=== PATIENT | male | born 1955 | race Caucasian/White ===

== ENCOUNTER 2018-07-24 13:26 | Day surgery (SDC) | END 2018-07-24 16:38 | disposition home or self-care (01) ==

== ENCOUNTER 2018-08-20 11:00 | Day surgery (SDC) | END 2018-08-20 16:45 | disposition home or self-care (01) ==

== ENCOUNTER 2018-09-18 09:14 | Day surgery (SDC) | END 2018-09-18 14:00 | disposition home or self-care (01) ==

== ENCOUNTER 2018-10-09 10:35 | Day surgery (SDC) | END 2018-10-09 16:28 | disposition home or self-care (01) ==

== ENCOUNTER 2018-10-31 09:43 | Day surgery (SDC) | payer OTHER ==
[~2018-10-31] VITALS: Ht 162.6 cm; Wt 66.1 kg
[~2018-10-31 09:43] MED LIST: AMLO5TAB4 PO; ASPI81TA52 PO; ATOR40TA68 PO; GABA-526 PO; GLIM2TAB PO; GLIP10TA14 PO; HYDR25TA6 PO; LEVO200T45 PO; VALS80TA2 PO; [UNRECOGNIZED DRUG - REMARK]
[2018-10-31 10:25] VITALS: Ht 162.6 cm; Wt 66.1 kg
[2018-10-31 10:57] VITALS: BP 118/69; PULSE 74; RESP 20
--- NOTE | 2018-10-31 11:03 | PREAC ---
Date/Time of Note Date/Time of Note DATE: 10/31/18 TIME: 11:01 Anesthesia Eval and Record Evaluation Time Pre-Procedure Interview DATE: 10/31/18 TIME: 11:01 Age 62 Sex male NPO: 8 hrs Preoperative diagnosis esopahageal obstruction Planned procedure egd Past Medical History Past Medical History: Includes Cardio: HTN, Dyslipidemia Endo: Diabetes Surgery & Anesthesia Issues No known issue Meds Anticoagulation: No Beta Mir within 24 hr: No Reason Beta Mir not given: Pt. not on B-Mir Reported Medications Atorvastatin* (Atorvastatin*) 40 Mg Tablet, 40 MG PO QHS, #30 TAB 09/18/18 Glipizide* (Glipizide*) 10 Mg Tablet, 10 MG PO AC BREAKFAST, TAB 08/20/18 Aspirin (Low Dose Aspirin) 81 Mg Tablet.dr, 81 MG PO DAILY, #30 TAB 08/20/18 Amlodipine Besylate* (Norvasc*) 5 Mg Tablet, 5 MG PO DAILY, TAB 08/20/18 Gabapentin* (Gabapentin*) 600 Mg Tablet, 600 MG PO BID, #60 TAB 08/20/18 Glimepiride* (Glimepiride*) 2 Mg Tablet, 2 MG PO WITH BREAKFAST, TAB 08/20/18 Hydrochlorothiazide* (Hydrochlorothiazide*) 25 Mg Tab, 25 MG PO DAILY, #30 TAB 08/20/18 Valsartan* (Diovan*) 80 Mg Tablet, 80 MG PO DAILY, TAB 08/20/18 Discontinued Reported Medications [Pt Reports No Meds] No Conflict Check 10/09/18 Levothyroxine Sodium* (Levoxyl*) 200 Mcg Tablet, 200 MCG PO BEFORE BREAKFAST, #30 TAB 08/20/18 Meds reviewed: Yes Allergies Coded Allergies: No Known Allergy (Unverified , 09/18/18) Allergies Reviewed: Yes Labs/Studies Labs Reviewed: Reviewed by anesthesiologist test: N/A Pre-procedure Exam Airway: Adequate mouth opening, Adequate thyromental dist Mallampati: Mallampati I Teeth: Normal Lung: Normal Heart: Normal ASA Physical Status ASA physical status: 2 Emergency: None Planned Anesthetic General/MAC: MAC Planned Pain Management Parenteral pain med Pre-operative Attestations Prior to commencing anesthesia and surgery, the patient was re-evaluated, there was verification of: *The patient's identity *The results of appropriate recent lab work and preoperative vital signs *The above evaluation not changing prior to induction *Anesthetic plan, risk benefits, alternative and complications discussed with patient/family; questions answered; patient/family understands, accepts and wishes to proceed. BURTON RODARTE Oct 31, 2018 11:02
[2018-10-31] MEDS ORDERED: PROPOFOL 20 ML ONE (11:06)
[2018-10-31] MEDS ORDERED: LIDOCAINE 2% (SDV) 5 ML INJ ONE (11:07)
[2018-10-31] MEDS ORDERED: ONDANSETRON 4 MG INJ IV PRN (11:30)
[2018-10-31] MEDS ORDERED: hydrALAzine 20 MG INJ IV PRN (11:30)
[2018-10-31] MEDS ORDERED: LABETALOL HCL 20MG INJ IV PRN (11:30)
[2018-10-31] MEDS ORDERED: EPHEDrine SULFATE 50 MG/5 ML SYG IV PRN (11:30)
[2018-10-31] MEDS ORDERED: FENTAnyl 50 MCG/ML VIAL IV PRN (11:30)
--- NOTE | 2018-10-31 11:33 | PAC ---
Date/Time of Note Date/Time of Note DATE: 10/31/18 TIME: 11:32 Post-Anesthesia Notes Post-Anesthesia Note Last documented vital signs Vital Signs Date Temp Pulse Resp B/P (MAP) Pulse Ox O2 O2 Flow FiO2 Time Delivery Rate 10/31/18 98.0 74 20 118/69 97 Room Air 1132 (85) Activity: WNL Respiratory function: WNL Cardiovascular function: WNL Mental status: Baseline Pain reasonably controlled: Yes Hydration appropriate: Yes Nausea/Vomiting absent: Yes BURTON RODARTE Oct 31, 2018 11:33
[2018-10-31 11:51] VITALS: BP 119/77; PULSE 76; RESP 24
== END 2018-10-31 12:17 | disposition home or self-care (01) ==
LOC: SDS 09:43 → GIL 09:43
PROVIDERS: ATTEND Internal Medicine Gastroenterology
DX: K22.2 Esophageal obstruction (principal); I10 Essential (primary) hypertension; E11.9 Type 2 diabetes mellitus without complications; E78.5 Hyperlipidemia, unspecified
CPT/HCPCS: 43249; 82962; Z7610

== ENCOUNTER 2019-01-06 09:20 | Day surgery (SDC) | payer OTHER ==
[~2019-01-06] VITALS: Ht 162.6 cm; Wt 71.9 kg
[~2019-01-06 09:20] MED LIST changes: -LEVO200T45 PO; -[UNRECOGNIZED DRUG - REMARK]
[2019-01-06 10:08] VITALS: Ht 162.6 cm; Wt 71.9 kg
[2019-01-06 10:40] VITALS: BP 129/70; PULSE 82; RESP 18
--- NOTE | 2019-01-06 11:01 | PREAC ---
Date/Time of Note Date/Time of Note DATE: 01/06/19 TIME: 11:00 Anesthesia Eval and Record Evaluation Time Pre-Procedure Interview DATE: 01/06/19 TIME: 11:00 Age 63 Sex male NPO: 8 hrs Preoperative diagnosis dysphagia Planned procedure EGD Past Medical History Past Medical History: Includes Cardio: Dyslipidemia Endo: Diabetes Surgery & Anesthesia Issues No known issue Meds Anticoagulation: No Beta Mir within 24 hr: Yes (aspirin 81mg) Reason Beta Mir not given: Pt. not on B-Mir Reported Medications Atorvastatin* (Atorvastatin*) 40 Mg Tablet, 40 MG PO QHS, #30 TAB 09/18/18 Glipizide* (Glipizide*) 10 Mg Tablet, 10 MG PO AC BREAKFAST, TAB 08/20/18 Aspirin (Low Dose Aspirin) 81 Mg Tablet.dr, 81 MG PO DAILY, #30 TAB 08/20/18 Amlodipine Besylate* (Norvasc*) 5 Mg Tablet, 5 MG PO DAILY, TAB 08/20/18 Gabapentin* (Gabapentin*) 600 Mg Tablet, 600 MG PO BID, #60 TAB 08/20/18 Glimepiride* (Glimepiride*) 2 Mg Tablet, 2 MG PO WITH BREAKFAST, TAB 08/20/18 Hydrochlorothiazide* (Hydrochlorothiazide*) 25 Mg Tab, 25 MG PO DAILY, #30 TAB 08/20/18 Valsartan* (Diovan*) 80 Mg Tablet, 80 MG PO DAILY, TAB 08/20/18 Meds reviewed: Yes Allergies Coded Allergies: No Known Allergy (Unverified , 09/18/18) Allergies Reviewed: Yes Labs/Studies Labs Reviewed: Reviewed by anesthesiologist test: N/A Pre-procedure Exam Airway: Adequate mouth opening, Adequate thyromental dist Mallampati: Mallampati II Teeth: Abnormal (overall teeth in poor condition) Lung: Normal Heart: Normal ASA Physical Status ASA physical status: 2 Emergency: None Planned Anesthetic General/MAC: MAC Pre-operative Attestations Prior to commencing anesthesia and surgery, the patient was re-evaluated, there was verification of: *The patient's identity *The results of appropriate recent lab work and preoperative vital signs *The above evaluation not changing prior to induction *Anesthetic plan, risk benefits, alternative and complications discussed with patient/family; questions answered; patient/family understands, accepts and wishes to proceed. GENEVIEVE GEORGE Jan 06, 2019 11:01
--- NOTE | 2019-01-06 11:02 | PAC ---
Date/Time of Note Date/Time of Note DATE: 01/06/19 TIME: 11:01 Post-Anesthesia Notes Post-Anesthesia Note Last documented vital signs 1100 98 F, 120/69 bp, 88 hr, 16 rr, 98% Activity: WNL Respiratory function: WNL Cardiovascular function: WNL Mental status: Baseline Pain reasonably controlled: Yes Hydration appropriate: Yes Nausea/Vomiting absent: Yes GENEVIEVE GEORGE Jan 06, 2019 11:02
[2019-01-06] MEDS ORDERED: ONDANSETRON 4 MG INJ IV PRN (11:30)
[2019-01-06] MEDS ORDERED: FENTAnyl 50 MCG/ML VIAL IV PRN (11:30)
[2019-01-06] MEDS ORDERED: ACETAMINOPHEN 500 MG TAB PO PRN (11:30)
[2019-01-06] MEDS ORDERED: ALBUTEROL 0.083% (NEB) 2.5 MG/3 ML AMP HHN PRN (11:30)
[2019-01-06 11:39] VITALS: BP 111/73; RESP 20
== END 2019-01-06 15:29 | disposition home or self-care (01) ==
LOC: GIL 09:20
PROVIDERS: ATTEND Internal Medicine Gastroenterology
DX: K22.2 Esophageal obstruction (principal); E11.9 Type 2 diabetes mellitus without complications; E78.5 Hyperlipidemia, unspecified
CPT/HCPCS: 82962

== ENCOUNTER 2019-01-27 06:27 | Day surgery (SDC) | payer OTHER ==
[~2019-01-27] VITALS: Ht 162.6 cm; Wt 68.8 kg
--- NOTE | 2019-01-27 07:37 | PREAC ---
Date/Time of Note Date/Time of Note DATE: 01/27/19 TIME: 07:36 Anesthesia Eval and Record Evaluation Time Pre-Procedure Interview DATE: 01/27/19 TIME: 07:36 Age 63 Sex male NPO: 8 hrs Preoperative diagnosis dysphagia Planned procedure EGD Past Medical History Past Medical History: Includes Endo: Diabetes Surgery & Anesthesia Issues No known issue Meds Anticoagulation: No Beta Mir within 24 hr: No Reason Beta Mir not given: Pt. not on B-Mir Reported Medications Atorvastatin* (Atorvastatin*) 40 Mg Tablet, 40 MG PO QHS, #30 TAB 09/18/18 Glipizide* (Glipizide*) 10 Mg Tablet, 10 MG PO AC BREAKFAST, TAB 08/20/18 Aspirin (Low Dose Aspirin) 81 Mg Tablet.dr, 81 MG PO DAILY, #30 TAB 08/20/18 Amlodipine Besylate* (Norvasc*) 5 Mg Tablet, 5 MG PO DAILY, TAB 08/20/18 Gabapentin* (Gabapentin*) 600 Mg Tablet, 600 MG PO BID, #60 TAB 08/20/18 Glimepiride* (Glimepiride*) 2 Mg Tablet, 2 MG PO WITH BREAKFAST, TAB 08/20/18 Hydrochlorothiazide* (Hydrochlorothiazide*) 25 Mg Tab, 25 MG PO DAILY, #30 TAB 08/20/18 Valsartan* (Diovan*) 80 Mg Tablet, 80 MG PO DAILY, TAB 08/20/18 Meds reviewed: Yes Allergies Coded Allergies: No Known Allergy (Unverified , 09/18/18) Allergies Reviewed: Yes Labs/Studies Labs Reviewed: Reviewed by anesthesiologist test: N/A Studies: ECG (n/a) Pre-procedure Exam Airway: Adequate mouth opening Mallampati: Mallampati I Teeth: Normal Lung: Normal Heart: Normal ASA Physical Status ASA physical status: 2 Emergency: None Planned Anesthetic General/MAC: MAC Pre-operative Attestations Prior to commencing anesthesia and surgery, the patient was re-evaluated, there was verification of: *The patient's identity *The results of appropriate recent lab work and preoperative vital signs *The above evaluation not changing prior to induction *Anesthetic plan, risk benefits, alternative and complications discussed with patient/family; questions answered; patient/family understands, accepts and wishes to proceed. HUANG GIBBS MD Jan 27, 2019 07:37
[2019-01-27 07:42] VITALS: Ht 162.6 cm; Wt 68.8 kg
[2019-01-27] MEDS ORDERED: PROPOFOL 20 ML ONE (07:43)
[2019-01-27] MEDS ORDERED: FENTAnyl 50 MCG/ML VIAL ONE (07:43)
[2019-01-27] MEDS ORDERED: METFORMIN (07:46)
[2019-01-27 07:50] VITALS: BP 134/80; PULSE 84; RESP 14
[2019-01-27] MEDS ORDERED: ONDANSETRON 4 MG INJ IV PRN (08:00)
[2019-01-27 08:30] VITALS: BP 114/72; PULSE 89; RESP 16
--- NOTE | 2019-01-27 14:29 | PAC ---
Date/Time of Note Date/Time of Note DATE: 01/27/19 TIME: 14:29 Post-Anesthesia Notes Post-Anesthesia Note Last documented vital signs Vital Signs Date Temp Pulse Resp B/P (MAP) Pulse Ox O2 O2 Flow FiO2 Time Delivery Rate 01/27/19 97.9 89 16 114/72 97 Room Air 08:30 (86) 01/27/19 97.6 07:50 Activity: WNL Respiratory function: WNL Cardiovascular function: WNL Mental status: Baseline Pain reasonably controlled: Yes Hydration appropriate: Yes Nausea/Vomiting absent: No HUANG GIBBS MD Jan 27, 2019 14:29
== END 2019-01-27 16:09 | disposition home or self-care (01) ==
LOC: GIL 06:27
PROVIDERS: ATTEND Internal Medicine Gastroenterology
DX: K22.2 Esophageal obstruction (principal); K29.00 Acute gastritis without bleeding; K22.5 Diverticulum of esophagus, acquired; E11.9 Type 2 diabetes mellitus without complications
CPT/HCPCS: 43249; 82962; J3010

== ENCOUNTER 2019-07-08 08:26 | Day surgery (SDC) | payer OTHER ==
[~2019-07-08] VITALS: Ht 162.6 cm; Wt 74.6 kg
[~2019-07-08 08:26] MED LIST changes: -AMLO5TAB4 PO; -ATOR40TA68 PO; -GABA-526 PO; +GABA400C14 PO; -GLIM2TAB PO; -HYDR25TA6 PO; +METF-849 PO; +METFORMIN; -VALS80TA2 PO
[2019-07-08 08:57] VITALS: Ht 162.6 cm; Wt 74.6 kg
[2019-07-08 09:39] VITALS: BP 117/66; PULSE 88; RESP 20
[2019-07-08] MEDS ORDERED: PROPOFOL 20 ML ONE (10:03)
[2019-07-08 10:50] VITALS: BP 105/67; PULSE 76; RESP 18
== END 2019-07-08 11:36 | disposition home or self-care (01) ==
LOC: GIL 08:26
PROVIDERS: ATTEND Internal Medicine Gastroenterology
DX: K22.2 Esophageal obstruction (principal); E11.9 Type 2 diabetes mellitus without complications; Z79.82 Long term (current) use of aspirin; Z79.84 Long term (current) use of oral hypoglycemic drugs